=== PATIENT | male | born 1975 | race Caucasian/White ===

== ENCOUNTER 2020-07-22 21:32 | Emergency (ER) | payer BC ==
--- NOTE | 2020-07-22 21:38 | EDM.PDOC ---
ED HPI GENERAL MEDICAL PROBLEM - General Chief Complaint: Neuro Symptoms/Deficits Stated Complaint: STROKE Time Seen by Provider: 07/22/20 21:32 - History of Present Illness INITIAL COMMENTS - FREE TEXT/NARRATIVE: History of present illness: [] Patient says that the last time he is absolutely sure his face was normal it was last night but he has an altered taste and his noticed an hour ago that he has facial paralysis on the right side. He has awareness of Torres's palsy because the 's family has had a person has had Torres's palsy 3 times. The patient has no ear pain but does have altered taste on the right side of his mouth Review of systems: As per history of present illness and below otherwise all systems reviewed and negative. Past medical history: As per history of present illness and as reviewed below otherwise noncontributory. Surgical history: As per history of present illness and as reviewed below otherwise noncontributory. Social history: No reported history of drug or alcohol abuse. Family history: As per history of present illness and as reviewed below otherwise noncontributory. Physical exam: Constitutional - well developed, well-nourished and in no acute distress HEENT - normocephalic, no evidence of trauma - external nose and mouth normal - no mass in neck and no JVD - mucosae moist EYES - full EOM, PERRL, no icterus - no evidence of inflammation, injection, or drainage Respiratory - no respiratory distress, equal bilateral expansion, lungs clear to auscultation and no abnormal lung sounds Cardiovascular - Regular Rhythm with S1 and S2 appreciated and no murmur, gallop or rub. 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 He is unable to completely close right eye. Patient is normal in the face. Fast exam is negative. My standard conventional neurologic exam is normal with the exception of the peripheral 7th nerve palsy alert and oriented times four - CN II-XII grossly intact left 7th nerve on the right and taste.- motor sensory and coordination symmetrically normal Psychiatric - appropriate mood and affect with normal thought content Hematologic - No petechiae or purpura - mucosa appropriate color and sclera not pale - normal nail bed color and refill Integument - no rash or evidence of trauma - normal turgor Diagnostics: [] Therapeutics: [] Impression: [] Plan: [] Definitive disposition and diagnosis as appropriate pending reevaluation and review of above. - Related Data Allergies Allergy/AdvReac Type Severity Reaction Status Date / Time No Known Allergies Allergy Verified 07/22/20 21:41 Home Meds: Home Meds predniSONE [Prednisone] 60 mg PO DAILY 6 Days #6 tablet 07/22/20 [Rx] valACYclovir HCl [valACYclovir] 1,000 mg PO TID 7 Days #21 tablet 07/22/20 [Rx] ED ROS GENERAL - Review of Systems Review Of Systems: Comprehensive ROS is negative, except as noted in HPI. ED EXAM, GENERAL - Physical Exam Exam: See Below Free Text/Narrative:: My physical exam is in the HPI Course - Vital Signs Last Recorded V/S: Last Vital Signs Temp 36.2 C 07/22/20 21:32 Pulse 83 07/22/20 21:32 Resp 16 07/22/20 21:32 BP 177/95 H 07/22/20 21:32 Pulse Ox 96 07/22/20 21:32 - Orders/Labs/Meds Orders: Active Orders 24 hr Category Date Time Status Communication Order [RC] STAT Care 07/22/20 22:01 Active Labs: Laboratory Tests 07/22/20 Range/Units 21:41 SARS-CoV-2 RNA (CARLA) NEGATIVE (NEGATIVE) Meds: Medications Discontinued Medications Generic Name Dose Route Start Last Admin Trade Name Lio PRN Reason Stop Dose Admin Prednisone 60 mg 07/22/20 22:01 07/22/20 22:18 Prednisone PO 07/22/20 22:02 60 mg ONETIME ONE Administration Departure - Departure Time of Disposition: 22:29 Disposition: Home, Self-Care 01 Condition: Good Clinical Impression: Torres's palsy - Discharge Information Prescriptions: predniSONE [Prednisone] 60 mg PO DAILY 6 Days #6 tablet valACYclovir HCl [valACYclovir] 1,000 mg PO TID 7 Days #21 tablet Instructions: Torres Palsy, Adult Forms: ED Department Discharge Additional Instructions: The most important part of treatment of Torres's palsy is to fill the medicines and might shorten the course and reduce the chance of recurrence as well as keep the right eye patched so that you do not have the eye tryout become damaged. [facility] - [facility] [address], [address] [place] [address] The following information is given to patients seen in the emergency department who are being discharged to home. This information is to outline your options for follow-up care. We provide all patients seen in our emergency department with a follow-up referral. The need for follow-up, as well as the timing and circumstances, are variable depending upon the specifics of your emergency department visit. If you don't have a primary care physician on staff, we will provide you with a referral. We always advise you to contact your personal physician following an emergency department visit to inform them of the circumstance of the visit and for follow-up with them and/or the need for any referrals to a consulting specialist. The emergency department will also refer you to a specialist when appropriate. This referral assures that you have the opportunity for follow-up care with a specialist. All of these measure are taken in an effort to provide you with optimal care, which includes your follow-up. Under all circumstances we always encourage you to contact your private physician who remains a resource for coordinating your care. When calling for follow-up care, please make the office aware that this follow-up is from your recent emergency room visit. If for any reason you are refused follow-up, please contact the [facility] Emergency Department at and asked to speak to the emergency department charge nurse. Sepsis Event Note (ED) - Focused Exam Vital Signs: Vital Signs Temp Pulse Resp BP Pulse Ox 07/22/20 21:32 36.2 C 83 16 177/95 H 96 - My Orders Last 24 Hours: My Active Orders 07/22/20 22:01 Communication Order [RC] STAT - Assessment/Plan Last 24 Hours: My Active Orders 07/22/20 22:01 Communication Order [RC] STAT
[2020-07-22] MEDS ORDERED: predniSONE 20 MG Tab PO ONE (22:01)
== END 2020-07-22 22:40 | disposition home or self-care (01) ==
LOC: MW.ED 21:32
DX: G51.0 Bell's palsy (principal); Z20.822 Contact with and (suspected) exposure to COVID-19
CPT/HCPCS: 87635; 99284; A9270; 99283; U0002